=== PATIENT | male | born 1950 | race Caucasian/White ===

== ENCOUNTER 2023-06-02 11:04 | Emergency (ER) | payer MEDICARE, SELFPAY ==
[2023-06-02 11:13] VITALS: BP 151/77; PULSE 93; RESP 18; TEMP 37.8; O2SAT 97; BMI 28.8
--- NOTE | 2023-06-02 12:01 | ED_ITS ---
HPI - General Adult General Chief complaint: Nausea/Vomiting Stated complaint: vomiting, diarrhea Time Seen by Provider: 06/02/23 11:49 History of Present Illness HPI narrative: This 73-year-old male comes in reporting diarrhea over the past 2-3 days. He does have some intermittent right lower quadrant abdominal pain but states that it is rather brief when it occurs. Currently does not have any abdominal pain. He did not measure his temperature but states that he did feel warm at times. He arrives here with a temperature 100.1? F. he has had some nausea and a couple episodes of vomiting. He does not describe any symptoms of dysuria. He does not have any prior history of kidney stone or other cause for abdominal pain. Related Data Home Medications Medication Instructions Recorded Confirmed allopurinol 100 mg tablet 100 mg PO DAILY 06/02/23 06/02/23 amlodipine 10 mg tablet 10 mg PO DAILY 06/02/23 06/02/23 atorvastatin 10 mg tablet 10 mg PO DAILY 06/02/23 06/02/23 omeprazole 20 mg capsule,delayed 20 mg PO DAILY 06/02/23 06/02/23 release Previous Rx's Medication Instructions Recorded diphenoxylate-atropine 2.5 1 tab PO DAILY #6 tabs 06/02/23 mg-0.025 mg tablet (Lomotil) ondansetron HCl 4 mg tablet 4 mg PO Q6H #10 tabs 06/02/23 Allergies Allergy/AdvReac Type Severity Reaction Status Date / Time Penicillins Allergy Unknown Verified 06/02/23 11:17 Review of Systems Status of ROS: Reports: 10 or more systems reviewed and unremarkable except as noted in History and below Narrative: Constitutional: No weight gain or loss. Eyes: No discharge. No vision changes. HENT: No congestion, no sore throat, no ear pain. Cardiovascular: No chest pain, no palpitations. Respiratory: No shortness of breath, no wheezes, no cough. Gastrointestinal: Occasional right lower quadrant abdominal pain. A few vo miting episodes. Persistent diarrhea. Genitourinary: No dysuria, no hematuria. Musculoskeletal: Normal range of motion. Skin: No rashes, no pruritis. Neurological: No dizziness, weakness, sensory change, speech change. Endo/Heme/Allergies: No bruising or bleeding. No polydipsia. Pysch: no suicidality, no anxiety, no insomnia. All other systems reviewed and are negative. Exam Narrative: Exam Narrative: Constitutional: Well-developed, well-nourished, no acute distress. HEENT: Normocephalic, atraumatic. Neck: Normal range of motion. Nontender. Supple. Heart: Regular. No murmurs. Normal rate. Intact distal pulses. Lungs: Clear to auscultation. No chest discomfort. No wheezes, rhonchi, or rales. Abdomen: Normal bowel sounds. Nontender. No rebound tenderness. Genitalia: Deferred. Back: No midline tenderness. Normal range of motion. Extremities: Normal range of motion. No injury. Skin: Intact. No rash. Warm. No erythema or pallor. Neurologic: No altered sensation. No weakness. Alert and oriented. Psychiatric: No suicidality. No anxiety or depression. No insomnia. Nursing notes and vitals signs are reviewed. Const: Vital Signs, click to edit/add: Vital Signs - 24 hr 06/02/23 11:13 Temperature 100.1 F H Pulse Rate [Pulse Oximeter] 93 Respiratory Rate 18 Blood Pressure [Ri ght Upper Arm] 151/77 H Pulse Oximetry 97 Oxygen Delivery Me thod Room Air Course Vital Signs Vital signs: Initial Vital Signs Temperature 100.1 F H 06/02/23 11:13 Temperature Source Temporal Artery Scan 06/02/23 11:13 Pulse Rate 93 06/02/23 11:13 Respiratory Rate 18 06/02/23 11:13 Blood Pressure 151/77 H 06/02/23 11:13 Blood Pressure Mean 101 06/02/23 11:13 Blood Pressure Position Sitting 06/02/23 11:13 Pulse Oximetry 97 06/02/23 11:13 Oxygen Delivery Method Room Air 06/02/23 11:13 Vital Signs Temperature 100.1 F H 06/02/23 11:13 Pulse Rate 93 06/02/23 11:13 Respiratory Rate 18 06/02/23 11:13 Blood Pressure 151/77 H 06/02/23 11:13 Pulse Oximetry 97 06/02/23 11:13 Oxygen Delivery Method Room Air 06/02/23 11:13 Temperature 100.1 F H 06/02/23 11:13 Pulse Rate 93 06/02/23 11:13 Respiratory Rate 18 06/02/23 11:13 Blood Pressure 151/77 H 06/02/23 11:13 Pulse Oximetry 97 06/02/23 11:13 Oxygen Delivery Method Room Air 06/02/23 11:13 Medications Administered Medications: Discontinued Medications Generic Name Dose Route Start Last Admin Trade Name Cary PRN Reason Stop Dose Admin Sodium Chloride 1,000 mls @ 1,000 mls/hr 06/02/23 12:00 06/02/23 12:39 0.9 % Sodium Chloride 1000 Ml IV 06/02/23 12:59 1,000 mls/hr .Q1H JAGDEEP Administration Medical Decision Making MDM Narrative Medical decision making narrative: This patient comes in reporting diarrhea over the past few days with occasional nausea and vomiting. An IV was established and labs are acquired. The patient did receive a L of normal saline intravenously. Labs returned with reassuring results with normal white count, hemoglobin, electrolytes, and negative testing for COVID, influenza, and RSV. Lactate level also is in normal range. It appears this patient has a gastroenteritis. He is okay to be discharged home. He is encouraged to use Imodium as directed but I did prescribe a few tablets of Lomotil if needed. He also received a prescription for Zofran. He is encouraged to increase his diet as tolerated. Lab Data Labs: Lab Results 06/02/23 Range/Units 12:15 WBC 9.01 (4.50-11.00) K/uL RBC 5.07 (4.30-5.90) m/uL Hgb 14.1 (13.5-17.5) gm/dL Hct 43.3 (37.0-53.0) % MCV 85 (80-100) fL MCH 28 (26-34) pg MCHC 33 (32-36) gm/dL RDW Coeff of Joseluis 14.4 (11.5-15.5) % Plt Count 402 (140-440) K/uL Neut % (Auto) 71.1 (42.0-72.0) % Lymph % (Auto) 16.2 L (20-44) % [place] % (Auto) 11.8 H (0.0-11.0) % Eos % (Auto) 0.4 (0.0-7.0) % Baso % (Auto) 0.4 (0.0-3.0) % Neut # (Auto) 6.40 (1.7-7.0) K/uL Lymph # (Auto) 1.50 (0.90-2.90) K/uL [place] # (Auto) 1.10 H (0.00-0.90) K/UL Eos # (Auto) 0.04 (0.00-0.50) K/uL Baso # (Auto) 0.04 (0.00-0.30) K/uL Abs Immat Gran (auto) 0.01 (0.00-0.30) K/uL Imm/Tot Granulo (auto) 0.1 % Sodium 139 (135-149) mmol/L Potassium 3.9 (3.6-5.1) mmol/L Chloride 106 (96-114) mmol/L Carbon Dioxide 19 L (20-32) mmol/L Anion Gap 14 (7-15) mEq/L BUN 13 (7-30) mg/dL Creatinine 1.0 (0.5-1.5) mg/dL Estimated Creat Clear 63.35 Estimated GFR 80 ml/min Glucose 101 (60-115) mg/dL Lactate 0.9 (0.5-1.9) mmol/L Calcium 9.0 (8.4-10.6) mg/dL SARS-CoV-2 (PCR) Negative SARS-CoV-2 (Negative) Influenza Type A (PCR) Negative PCR FLU A (Negative) Influenza Type B (PCR) Negative PCR FLU B (Negative) RSV (PCR) Negative PCR RSV (Negative) Discharge Plan Discharge Clinical Impression: Gastroenteritis Patient Disposition: Home, Self-Care Condition: Stable Additional Instructions: Take frequent sips of fluids. Increase diet as tolerated. Use medications as needed and directed. For diarrhea it is recommended to use Imodium 1st but if diarrhea is persistent Lomotil may be used also. Prescriptions: New ondansetron HCl 4 mg tablet 4 mg PO Q6H Qty: 10 0RF diphenoxylate-atropine [Lomotil] 2.5-0.025 mg tablet 1 tab PO DAILY Qty: 6 0RF No Action atorvastatin 10 mg tablet 10 mg PO DAILY allopurinol 100 mg tablet 100 mg PO DAILY amlodipine 10 mg tablet 10 mg PO DAILY omeprazole 20 mg capsule,delayed release(DR/EC) 20 mg PO DAILY Follow Up/Referrals: Isabel Thompson MD [Primary Care Provider] - [facility]
[2023-06-02 12:20] LABS: Lactate* 0.9 mmol/L (0.5-1.9)
[2023-06-02 12:32] LABS: Basophils Absolute Auto 0.04 K/uL (0.00-0.30); Basophils Percent Auto 0.4 % (0.0-3.0); Eosinophils Absolute Auto 0.04 K/uL (0.00-0.50); Eosinophils Percent Auto 0.4 % (0.0-7.0); Hematocrit 43.3 % (37.0-53.0); Hemoglobin* 14.1 gm/dL (13.5-17.5); Immature Granulocytes Abs Auto 0.01 K/uL (0.00-0.30); Immature Granulocytes Pct Auto 0.1 %; Lymphocytes Percent Auto 16.2 % (20-44); Mean Corpuscular HGB Conc 33 gm/dL (32-36); Mean Corpuscular Hemoglobin 28 pg (26-34); Mean Corpuscular Volume 85 fL (80-100); Monocytes Percent Auto 11.8 % (0.0-11.0); Neutrophils Percent Auto 71.1 % (42.0-72.0); Platelet Count* 402 K/uL (140-440); RDW Coefficient of Variation % 14.4 % (11.5-15.5); Red Blood Count 5.07 m/uL (4.30-5.90); White Blood Count* 9.01 K/uL (4.50-11.00)
[2023-06-02 12:36] LABS: Chloride* 106 mmol/L (96-114); Potassium* 3.9 mmol/L (3.6-5.1); Sodium* 139 mmol/L (135-149)
[2023-06-02 12:37] LABS: Slide Review Reflex No
[2023-06-02 12:39] LABS: Anion Gap 14 mEq/L (7-15); Blood Urea Nitrogen* 13 mg/dL (7-30); Carbon Dioxide* 19 mmol/L (20-32); Est. Creatinine Clearance* 63.35; Estimated Glomerular Filt Rate 80 ml/min; Glucose* 101 mg/dL (60-115)
[2023-06-02] MEDS: 0.9 % SODIUM CHLORIDE 1000 ml 1,000 ML IV (12:39)
[2023-06-02 13:00] LABS: PCR FLU A Negative PCR FLU A (Negative); PCR FLU B Negative PCR FLU B (Negative); PCR RSV Negative PCR RSV (Negative)
[2023-06-02 13:07] LABS: SARS PCR* Negative SARS-CoV-2 (Negative)
== END 2023-06-02 13:35 | disposition home or self-care (01) ==
PROVIDERS: Emergency Provider Emergency Medicine Emergency Medical Services; PCP Family Medicine
DX: K52.9 Noninfective gastroenteritis and colitis, unspecified (principal)
CPT/HCPCS: 36415; 80048; 83605; 85025; 87040; 87631; 96360; 99284; J7030